=== PATIENT | female | born 1955 | race Two or more races ===

== ENCOUNTER 2016-08-19 11:59 | Emergency (ER) | payer OTHER ==
[~2016-08-19] VITALS: Ht 157.5 cm; Wt 63.5 kg
[2016-08-19 12:58] LABS: Basophils # (auto) 0 uL; Basophils % (auto) 0.3 % (0.0-2.0); Eosinophils # (auto) 0 uL; Eosinophils % (auto) 0.2 % (0.0-7.0); Hematocrit 38.8 % (36.0-46.0); Hemoglobin 12.8 g/dL (12.2-16.2); Lymphocytes # (auto) 0.9 uL; Lymphocytes % (auto) 9.5 % (10.0-50.0); Mean Corpuscular Hemoglobin 29.7 pg (28.0-32.0); Mean Corpuscular Volume 89.9 fL (80.0-100.0); Mean Platelet Volume 8.2 fL (7.4-10.4); Monocytes # (auto) 0.4 uL; Monocytes % (auto) 4.4 % (0.0-12.0); Neutrophils # (auto) 8.2 uL; Neutrophils % (auto) 85.6 % (37.0-80.0); Platelet Count (auto) 338 10^3/uL (140-450); Red Cell Distribution Width 12.4 % (11.6-16.0); White Blood Cell 9.6 10^3/uL (4.4-10.8)
[2016-08-19] MEDS ORDERED: SODIUM CHLORIDE 0.9% 500 ML IVB ONE (13:01)
[2016-08-19] MEDS ORDERED: MORPHINE SULFATE 4 MG/ML SYRG IV ONE (13:15)
[2016-08-19] MEDS ORDERED: PROCHLORPERAZINE EDISYLATE 5 MG/ML 2ML VIAL IV ONE (13:15)
[2016-08-19 13:39] LABS: Amylase 152 U/L (25-115)
[2016-08-19 13:41] LABS: Albumin 4.1 g/dL (3.4-5.0); BUN/Creatinine Ratio 17.6; Bilirubin, Total 0.4 mg/dL (0.2-1.0); Potassium 3.5 mmol/L (3.5-5.1); Total Protein 7.6 g/dL (6.4-8.2)
[2016-08-19] MEDS ORDERED: METOCLOPRAMIDE HCL 5MG/ml INJ 2ml VIAL IV ONE (15:15)
[2016-08-19] MEDS ORDERED: cloNIDine HCL 0.1 MG TAB PO ONE (15:15)
[2016-08-19 17:55] VITALS: BP 130/74
== END 2016-08-19 17:56 | disposition short-term general hospital (02) ==
LOC: ER 12:06
DX: R10.9 Unspecified abdominal pain (principal); G43.A1 Cyclical vomiting, in migraine, intractable; I10 Essential (primary) hypertension; Z88.6 Allergy status to analgesic agent; Z88.1 Allergy status to other antibiotic agents
CPT/HCPCS: 36415; 74176; 80053; 82150; 83690; 85025; 93005; 94761; 96361; 96374; 96375; 99285; J0780; J2270; J2765; J7040

== ENCOUNTER 2019-05-15 20:24 | Inpatient (IN) | payer OTHER ==
[~2019-05-15] VITALS: Ht 154.9 cm; Wt 58.9 kg
[2019-05-15] MEDS ORDERED: CLOPIDOGREL 300 MG TAB PO ONE (20:45)
[2019-05-15] MEDS ORDERED: HEPARIN SODIUM (PORCINE) 5000 UNITS/ML 1ML VIAL IV ONE (20:45)
[2019-05-15] MEDS ORDERED: ASPirin 81 mg TAB PO ONE (20:45)
[2019-05-15] MEDS: SODIUM CHLOR 0.9% PF (SALINE LOCK) 10ML VIAL/SYR IV SCH (20:48)
[2019-05-15] MEDS ORDERED: LIDOCAINE 2%HCL (LOCAL ANESTH.) INJ 20ML MDV ONE (20:54)
[2019-05-15] MEDS ORDERED: IOHEXOL 350 MG/ML 100ML IJ ONE (20:54)
[2019-05-15] MEDS ORDERED: ATROPINE SULF 1 MG/10ml SYR ONE (20:57)
[2019-05-15] MEDS ORDERED: fentaNYL CITRATE 100 MCG/2 ML VL ONE (20:57)
[2019-05-15] MEDS ORDERED: MIDAZOLAM HCL 1MG/1ML-2 ML VIAL ONE (20:57)
[2019-05-15] MEDS ORDERED: SODIUM CHL 0.9% 50 ML ONE (20:57)
[2019-05-15] MEDS ORDERED: ANGIOMAX 250 MG VIAL IV ONE (20:57)
[2019-05-15] MEDS ORDERED: EPINEPHrine HCL 1 MG/10 ML SYRG ONE (20:57)
[2019-05-15] MEDS ORDERED: PROMETHAZINE HCL 25 MG/ML 1ML ONE (20:59)
[2019-05-15] MEDS ORDERED: PROMETHAZINE HCL 25 MG/ML 1ML IV ONE (21:00)
[2019-05-15 21:02] LABS: Basophils # (auto) 0.1 uL; Basophils % (auto) 0.7 % (0.0-2.0); Eosinophils # (auto) 0.5 uL; Eosinophils % (auto) 3.5 % (0.0-7.0); Hematocrit 38.6 % (36.0-46.0); Hemoglobin 13.3 g/dL (12.2-16.2); Lymphocytes # (auto) 4.4 uL; Lymphocytes % (auto) 30.7 % (10.0-50.0); Mean Corpuscular Hgb Conc. 34.5 g/dL (32.0-36.0); Mean Corpuscular Volume 92.6 fL (80.0-100.0); Monocytes # (auto) 1.1 uL; Monocytes % (auto) 7.9 % (0.0-12.0); Neutrophils # (auto) 8.2 uL; Neutrophils % (auto) 57.2 % (37.0-80.0); Nucleated Red Blood Cells % 0.1 %; Platelet Count (auto) 323 10^3/uL (140-450); Red Blood Cells 4.17 10^6/uL (4.0-5.20); Red Cell Distribution Width 12.8 % (11.8-14.3); White Blood Cell 14.3 10^3/uL (4.4-10.8)
[2019-05-15 21:16] LABS: INR < 0.93 (0.9-1.15); Partial Thromboplastin Time 27.5 sec (23.64-32.05)
[2019-05-15 21:19] LABS: Albumin 3.5 g/dL (3.4-5.0); Calcium 8.2 mg/dL (8.5-10.1); Potassium 3.4 mmol/L (3.5-5.1)
[2019-05-15 21:21] LABS: BUN/Creatinine Ratio 13.5
[2019-05-15 21:25] LABS: Bilirubin, Total 0.2 mg/dL (0.2-1.0); Total Protein 7.1 g/dL (6.4-8.2)
[2019-05-15] MEDS ORDERED: ONDANSETRON HCL 4 MG/2 ML VIAL ONE (21:32)
[2019-05-15] MEDS ORDERED: EPTIFIBATIDE INJ (2MG/ML) 10ML VIAL IV ONE (21:33)
[2019-05-15] MEDS ORDERED: ATROPINE SULFATE 0.4 MG/1 ML VIAL ONE (21:45)
[2019-05-15] MEDS ORDERED: CLOPIDOGREL 300 MG TAB ONE (22:12)
[2019-05-15] MEDS ORDERED: MORPHINE SULF INJ 2 MG/ML SYRINGE 1ML IV PRN (22:45)
[2019-05-15] MEDS ORDERED: NITROGLYCERIN 0.4 MG SL TAB SL PRN (22:45)
--- NOTE | 2019-05-15 23:00 | NUR ---
RECEIVED REPORT FROM CARDIAC CATH POC REVIEWED
[2019-05-15 23:30] VITALS: BP 124/81
--- NOTE | 2019-05-15 23:30 | NUR ---
RECEIVED PT FROM CARDIAC CATH RIGHT GROIN DRESSING DRY AND INTACT , PULSES PALPABLE, PT FLAT DOWN TOWN TILL 1:00 AM, DENIES PAIN OR DISCOMFORT, RESP EVEN AND UNLABORED ON ROOM AIR, FAMILY AT BEDSIDE ALL QUESTIONS AND CONCERNS ADDRESSED, PT OFFERED FLUIDS AND BEDPAN, CALL LIGHT WITHIN REACH, WILL CONTINUE TO MONITOR
[2019-05-16] MEDS: SOD CHL 0.45% 1,000 ML IV SCH ×3 (01:02→21:14)
--- NOTE | 2019-05-16 01:20 | NUR ---
TWO HOUR PERIOD UP PT TURNED ON SIDE RIGHT GROIN DRESSING DRY AND INTACT NO S/S OF HEMATOMA OR PAIN
[2019-05-16 05:19] LABS: Basophils # (auto) 0 uL; Basophils % (auto) 0.3 % (0.0-2.0); Eosinophils # (auto) 0.1 uL; Eosinophils % (auto) 1.3 % (0.0-7.0); Hematocrit 36.7 % (36.0-46.0); Hemoglobin 12.7 g/dL (12.2-16.2); Lymphocytes # (auto) 2.5 uL; Lymphocytes % (auto) 24.9 % (10.0-50.0); Mean Corpuscular Hemoglobin 32.2 pg (28.0-32.0); Mean Corpuscular Hgb Conc. 34.7 g/dL (32.0-36.0); Mean Corpuscular Volume 92.7 fL (80.0-100.0); Monocytes # (auto) 0.7 uL; Monocytes % (auto) 7.5 % (0.0-12.0); Neutrophils # (auto) 6.5 uL; Platelet Count (auto) 295 10^3/uL (140-450); Red Blood Cells 3.96 10^6/uL (4.0-5.20); Red Cell Distribution Width 12.9 % (11.8-14.3); White Blood Cell 9.9 10^3/uL (4.4-10.8)
[2019-05-16 05:33] LABS: Calcium 8.7 mg/dL (8.5-10.1); Potassium 4.3 mmol/L (3.5-5.1)
[2019-05-16 05:39] LABS: BUN/Creatinine Ratio 13.1
[2019-05-16 05:48] VITALS: BP 143/80
[2019-05-16] MEDS: SODIUM CHLOR 0.9% PF (SALINE LOCK) 10ML VIAL/SYR IV SCH ×3 (06:00→21:15)
[2019-05-16] MEDS: ONDANSETRON HCL 4 MG/2 ML VIAL IV SCH ×2 (06:00)
[2019-05-16 08:44] VITALS: BP 118/66
[2019-05-16] MEDS: CLOPIDOGREL BISULFATE 75 MG TAB PO SCH (09:31)
[2019-05-16] MEDS: PANTOPRAZOLE 40 MG TAB PO SCH ×2 (09:31→21:15)
[2019-05-16] MEDS: ASPirin 81 mg TAB PO SCH (09:31)
[2019-05-16] MEDS: ATORVASTATIN 20 MG TAB PO SCH (09:32)
[2019-05-16] MEDS: METOPROLOL TARTRATE 25 MG TAB PO SCH ×2 (09:32→21:15)
--- NOTE | 2019-05-16 10:09 | NUR ---
1000 05/16/19 Contacted infrastructure analyst Kehinde Benavides at [facility] and requested authorization to be provided for patient's continued stay. Per Kehinde Benavides the assigned child welfare caseworker Perri has to review the clinical information (she did verify that they received clinical information I faxed today) before further authorization can be provided. I requested that she have child welfare caseworker Perri give me a call back.
--- NOTE | 2019-05-16 10:56 | NUR ---
1045 05/16/19 I spoke with [place] Assessor Perri, she stated that patient's stay should be covered due to needing another heart cath-when I asked her to fax over further authorization-she said that she still has to go over the information with her MD, and that they normally do their authorizations in the evening.
[2019-05-16] MEDS ORDERED: ONDANSETRON HCL 4 MG/2 ML VIAL IV PRN (11:00)
--- NOTE | 2019-05-16 11:03 | NUR ---
md Deepa Baker rounded on pt pt to be npo tonight at midnight and pt to have left heart cath anaya morning
--- NOTE | 2019-05-16 11:07 | NUR ---
Deepa Baker made aware of episode of v tach and bradycardia no new orders
[2019-05-16 13:00] VITALS: BP 129/71
--- NOTE | 2019-05-16 14:35 | NUR ---
1430 05/16/19 I called [place] Division Sales Manager Perri [phone] to let her know that I spoke with Dr. Deepa Baker and patient will be having the second heart cath tomorrow morning 05/17 at 0800. I requested authorization for patient's continued stay-she will speak with her MD and give me a call back. I asked her to provide me with a name and phone number for her MD so a peer to peer can be done if needed, she would not give me a doctor's name/number-I provided her with contact information for Dr. Deepa Baker-she said her doctor would call him if needed.
[2019-05-16] MEDS ORDERED: HYDROmorphone HCL 2 MG/ML VL IV PRN (16:00)
[2019-05-16] MEDS: HYDROcodone-ACET 5/325MG TAB PO PRN ×2 (16:09→22:42)
--- NOTE | 2019-05-16 16:25 | NUR ---
patient complain of moderate pain to right femoral site s/p heart cath, no bleeding noted dressing intact prn norco given as ordered for moderate pain
[2019-05-16 16:47] VITALS: BP 128/74
--- NOTE | 2019-05-16 19:30 | NUR ---
Opening Shift Note Assumed care of patient, awake and alert x4. Patient denies pain at this time. No signs/symptoms of distress or shortness of breath noted at this time. Instructed on plan of care and to call for assistance as needed, patient verbalized understanding. Bed is locked in lowest position, side rails x 2 are up, and call light is within reach.
[2019-05-16] MEDS ORDERED: TEMAZEPAM 15 MG CAP PO PRN (22:00)
[2019-05-16 23:09] VITALS: BP 122/72
--- NOTE | 2019-05-17 04:00 | NUR ---
CHG BATH COMPLETED CHG bath completed and full linen change done.
[2019-05-17 05:15] VITALS: BP 135/64
[2019-05-17 06:52] LABS: Basophils # (auto) 0 uL; Basophils % (auto) 0.4 % (0.0-2.0); Eosinophils # (auto) 0.3 uL; Eosinophils % (auto) 3.5 % (0.0-7.0); Hematocrit 37.8 % (36.0-46.0); Hemoglobin 13.1 g/dL (12.2-16.2); Lymphocytes # (auto) 2.2 uL; Mean Corpuscular Hemoglobin 32.1 pg (28.0-32.0); Mean Corpuscular Hgb Conc. 34.6 g/dL (32.0-36.0); Mean Corpuscular Volume 92.8 fL (80.0-100.0); Monocytes # (auto) 0.8 uL; Neutrophils # (auto) 6.4 uL; Neutrophils % (auto) 65.1 % (37.0-80.0); Platelet Count (auto) 275 10^3/uL (140-450); Red Blood Cells 4.08 10^6/uL (4.0-5.20); White Blood Cell 9.8 10^3/uL (4.4-10.8)
[2019-05-17] MEDS: SODIUM CHLOR 0.9% PF (SALINE LOCK) 10ML VIAL/SYR IV SCH ×3 (06:53→22:32)
[2019-05-17 07:03] LABS: Potassium 4.2 mmol/L (3.5-5.1)
--- NOTE | 2019-05-17 07:20 | NUR ---
PATIENT TRANSPORTED TO [facility] Patient transported to blood and plasma laboratory assistant via hospital bed with assistance of karley López. No signs/symptoms of distress noted upon departure. Patient denies pain at this time. Report given to blood and plasma laboratory assistant RN.
[2019-05-17] MEDS ORDERED: IOHEXOL 350 MG/ML 100ML IJ ONE ×2 (07:48→08:25)
[2019-05-17] MEDS ORDERED: LIDOCAINE 2%HCL (LOCAL ANESTH.) INJ 20ML MDV ONE (07:48)
[2019-05-17] MEDS ORDERED: fentaNYL CITRATE 100 MCG/2 ML VL ONE (07:52)
[2019-05-17] MEDS ORDERED: MIDAZOLAM HCL 1MG/1ML-2 ML VIAL ONE (07:52)
[2019-05-17] MEDS ORDERED: ANGIOMAX 250 MG VIAL IV ONE (07:52)
[2019-05-17] MEDS ORDERED: SODIUM CHL 0.9% 50 ML ONE (07:53)
[2019-05-17] MEDS ORDERED: ONDANSETRON HCL 4 MG/2 ML VIAL ONE (07:56)
--- NOTE | 2019-05-17 08:00 | NUR ---
RE: interventions Patient off unit. Addendum: 05/17/19 at 1149 by AUBREE GRIFFITHS RN RN Amended: Links added.
[2019-05-17] MEDS ORDERED: HYDROmorphone HCL 2 MG/ML VL ONE (08:51)
[2019-05-17] MEDS: METOPROLOL TARTRATE 25 MG TAB PO SCH ×2 (09:15→21:52)
[2019-05-17] MEDS: ASPirin 81 mg TAB PO SCH (09:15)
[2019-05-17] MEDS: CLOPIDOGREL BISULFATE 75 MG TAB PO SCH (09:16)
--- NOTE | 2019-05-17 09:55 | NUR ---
REPORT REPORT FROM LANA MENDEZ FROM [employer]AL[facility] CONTROL ASSISTANT RECEIVED. ALL QUESTIONS/CONCERNS ANSWERED
[2019-05-17] MEDS: PANTOPRAZOLE 40 MG TAB PO SCH ×2 (10:00→21:51)
[2019-05-17] MEDS: ATORVASTATIN 20 MG TAB PO SCH (10:00)
--- NOTE | 2019-05-17 10:10 | NUR ---
ON UNIT PATIENT ON UNIT FROM MOLDER SHOULDER PAD. NO S/S OF DISTRESS, PAIN, OR SOB. DRESSING TO LEFT GROIN C/D/I. PATIENT INSTRUCTED TO LAY FLAT UNTIL 1200 AND IS ABLE TO GET OUT OF BED AT 1500. PATIENT VERBALIZED UNDERSTANDING. WILL CONTINUE TO MONITOR
--- NOTE | 2019-05-17 10:20 | NUR ---
MD ROUNDS DR Deepa DE LEON AT BEDSIDE DISCUSSING POC FROM PROCEDURE WITH PATIENT AND FAMILY. ALL QUESTIONS/CONCERNS ANSWERED. NEW ORDERS RECEIVED/CARRIED OUT. WILL CONTINUE TO MONITOR
--- NOTE | 2019-05-17 10:30 | NUR ---
PATIENT RETURNED FROM [employer] SALES CLERK AT 1020. PHYSICAL ASSESSMENT DONE AT THIS TIME Addendum: 05/17/19 at 1230 by AUBREE GRIFFITHS RN RN Amended: Links added.
--- NOTE | 2019-05-17 12:05 | NUR ---
1200 05/17/19 Contacted [facility]-spoke with commodity industry analyst Dallas (working with binder caser Yahaira). I made Dallas aware that patient does have order to discharge home today, and needs a PCP appointment [facility]. Per Dallas, he will schedule an appointment for the patient to see their PCP within 1-2 days-he will call nurse's station with scheduled appointment as well as the patient.
--- NOTE | 2019-05-17 12:25 | NUR ---
PHONE CALL RECEIVED PHONE CALL FROM CORIE AT [facility] RE: PATIENT HAS APPOINTMENT MADE WITH PCP DR BROWNE Thursday05/19/19 AT 2:50 PM
[2019-05-17 13:00] VITALS: BP 167/82
[2019-05-17 17:00] VITALS: BP 136/70
[2019-05-17] MEDS: HYDROcodone-ACET 5/325MG TAB PO PRN ×2 (17:13→21:52)
--- NOTE | 2019-05-17 19:30 | NUR ---
Opening Shift Note Assumed care of patient, awake and alert x4. Patient denies pain at this time. No signs/symptoms of distress or shortness of breath noted at this time. Instructed on plan of care and to call for assistance as needed, patient verbalized understanding. Bed is locked in lowest position, side rails x 2 are up, and call light is within reach. Addendum: 05/17/19 at 2307 by IESHA ZIMMERMAN RN RN Per Pete Fernandes ordered for patient to be discharged home tomorrow on 05-18-19.
[2019-05-17 22:00] VITALS: BP 123/74
[2019-05-18 06:00] VITALS: BP 115/71
[2019-05-18] MEDS: SODIUM CHLOR 0.9% PF (SALINE LOCK) 10ML VIAL/SYR IV SCH (06:40)
--- NOTE | 2019-05-18 07:30 | NUR ---
Patient in bed, awake, oriented x4, no acute distress noted, ambulatory.
--- NOTE | 2019-05-18 08:05 | NUR ---
Received a call from Tile Roofer Gladis that patient got discharge orders yesterday but Filiberto called her why the patient is still here.
[2019-05-18 08:23] VITALS: BP 118/62
--- NOTE | 2019-05-18 11:00 | NUR ---
Patient stated she knew that she has discharge orders yesterday after the left heart cath but Dr. Baker told her that she will go home today, Thursday.
--- NOTE | 2019-05-18 11:00 | NUR ---
assessment No post discharge needs identified. Addendum: 05/18/19 at 1642 by Nyasia KENDRICK Amended: Links added.
[2019-05-18] MEDS: CLOPIDOGREL BISULFATE 75 MG TAB PO SCH (11:05)
[2019-05-18] MEDS: ATORVASTATIN 20 MG TAB PO SCH (11:06)
[2019-05-18] MEDS: PANTOPRAZOLE 40 MG TAB PO SCH (11:07)
[2019-05-18] MEDS: METOPROLOL TARTRATE 25 MG TAB PO SCH (11:07)
[2019-05-18] MEDS: ASPirin 81 mg TAB PO SCH (11:07)
[2019-05-18 11:44] VITALS: BP 118/62
--- NOTE | 2019-05-18 12:00 | NUR ---
Right and left groin no bleeding noted.
--- NOTE | 2019-05-18 12:25 | NUR ---
Discharge instructions given as ordered. Encourage to follow up with PMD as instructed. All questions and concerns addressed. Patient verbalized understanding. Medication reconciliation form completed and copy given to patient. IV removed with catheter intact, pressure dressing applied. Telemetry unit returned to ICU. Patient is ambulatory, patient refused to be taken to vehicle via wheelchair, patient with all personal belongings, accompanied by family member. No distress noted at time of departure.
== END 2019-05-18 12:25 | disposition home or self-care (01) | DRG 247 ==
LOC: EDBD 20:24 → ER 20:27 → CATH 1 22:56 → TELE-WESTW 22:57
PROVIDERS: ADMIT Specialist; ATTEND Specialist
PROC: 4A023N7 Measurement of Cardiac Sampling and Pressure, Left Heart, Percutaneous Approach (ICD-10-PCS; principal; 2019-05-15)
PROC: 027034Z Dilation of Coronary Artery, One Artery with Drug-eluting Intraluminal Device, Percutaneous Approach (ICD-10-PCS; 2019-05-15)
PROC: 02C03ZZ Extirpation of Matter from Coronary Artery, One Artery, Percutaneous Approach (ICD-10-PCS; 2019-05-15)
PROC: B211YZZ Fluoroscopy of Multiple Coronary Arteries using Other Contrast (ICD-10-PCS; 2019-05-15)
PROC: B215YZZ Fluoroscopy of Left Heart using Other Contrast (ICD-10-PCS; 2019-05-15)
PROC: B41C1ZZ Fluoroscopy of Pelvic Arteries using Low Osmolar Contrast (ICD-10-PCS; 2019-05-15)
PROC: B240ZZ3 Ultrasonography of Single Coronary Artery, Intravascular (ICD-10-PCS; 2019-05-15)
PROC: 3E073PZ Introduction of Platelet Inhibitor into Coronary Artery, Percutaneous Approach (ICD-10-PCS; 2019-05-15)
PROC: 027034Z Dilation of Coronary Artery, One Artery with Drug-eluting Intraluminal Device, Percutaneous Approach (ICD-10-PCS; 2019-05-17)
PROC: B41G1ZZ Fluoroscopy of Left Lower Extremity Arteries using Low Osmolar Contrast (ICD-10-PCS; 2019-05-17)
PROC: B241ZZ3 Ultrasonography of Multiple Coronary Arteries, Intravascular (ICD-10-PCS; 2019-05-17)
DX: I21.19 ST elevation (STEMI) myocardial infarction involving other coronary artery of inferior wall (principal); I25.110 Atherosclerotic heart disease of native coronary artery with unstable angina pectoris; I10 Essential (primary) hypertension; Z79.02 Long term (current) use of antithrombotics/antiplatelets; Z79.82 Long term (current) use of aspirin; Z79.899 Other long term (current) drug therapy; Z87.11 Personal history of peptic ulcer disease; Z88.2 Allergy status to sulfonamides; Z88.5 Allergy status to narcotic agent; Z90.710 Acquired absence of both cervix and uterus; I25.2 Old myocardial infarction
CPT/HCPCS: 36415; 71045; 75710; 80048; 80053; 83735; 83880; 84484; 85025; 85610; 85730; 86850; 86900; 86901; 92928; 92941; 92973; 92978; 93005; 93458; 94761; 96374; 99291; G0378; J0461; J2250; J2405

== ENCOUNTER 2019-09-06 18:25 | Emergency (ER) | payer OTHER ==
[~2019-09-06] VITALS: Ht 154.9 cm; Wt 63.5 kg
[2019-09-06 20:26] LABS: Basophils # (auto) 0 10 ^3/uL (0-0.2); Basophils % (auto) 0.2 % (0.0-2.0); Eosinophils # (auto) 0.3 10 ^3/uL (0-0.8); Eosinophils % (auto) 3.9 % (0.0-7.0); Hematocrit 42.4 % (36.0-46.0); Hemoglobin 14.5 g/dL (12.2-16.2); Lymphocytes # (auto) 1.9 10 ^3/uL (0.4-5.4); Mean Corpuscular Hemoglobin 31.4 pg (28.0-32.0); Mean Corpuscular Hgb Conc. 34.3 g/dL (32.0-36.0); Mean Corpuscular Volume 91.5 fL (80.0-100.0); Monocytes # (auto) 0.9 10 ^3/uL (0-1.3); Neutrophils # (auto) 5.2 10 ^3/uL (1.6-8.6); Neutrophils % (auto) 61.9 % (37.0-80.0); Nucleated Red Blood Cells % 0.1 %; Platelet Count (auto) 259 10^3/uL (140-450); Red Blood Cells 4.63 10^6/uL (4.0-5.20); Red Cell Distribution Width 13.2 % (11.8-14.3); White Blood Cell 8.4 10^3/uL (4.4-10.8)
[2019-09-06 20:46] LABS: Alanine Aminotransferase 36 U/L (13-56); Albumin 3.9 g/dL (3.4-5.0); Anion Gap 8 (5-15); Aspartate Aminotransferase 25 U/L (15-37); BUN/Creatinine Ratio 9.6; Blood Urea Nitrogen 7 mg/dL (7-18); Calcium 8.9 mg/dL (8.5-10.1); Carbon Dioxide 21 mmol/L (21-32); Chloride 104 mmol/L (98-107); GFR African American 104 mL/min; GFR Non-African American 86 mL/min; Glucose 110 mg/dL (74-106); Potassium 3.5 mmol/L (3.5-5.1); Sodium 133 mmol/L (136-145)
[2019-09-06 20:49] LABS: Alkaline Phosphatase 86 U/L (45-117); Bilirubin, Total 0.4 mg/dL (0.2-1.0); Total Protein 7.9 g/dL (6.4-8.2)
[2019-09-06] MEDS ORDERED: PROMETHAZINE HCL 25 MG/ML 1ML IV ONE (21:15)
[2019-09-06 23:09] LABS: INR 1.03 (0.9-1.15); Partial Thromboplastin Time 28.2 sec (23.64-32.05)
[2019-09-07 00:01] VITALS: BP 128/68
== END 2019-09-07 00:30 | disposition home or self-care (01) ==
LOC: ER 18:25 → EDBD 18:25 → ER 09-07 00:30
DX: R07.89 Other chest pain (principal); R11.0 Nausea; I10 Essential (primary) hypertension; I25.2 Old myocardial infarction; Z88.6 Allergy status to analgesic agent; Z88.2 Allergy status to sulfonamides; Z90.710 Acquired absence of both cervix and uterus; Z98.61 Coronary angioplasty status
CPT/HCPCS: 36415; 71045; 80053; 84484; 85025; 85610; 85730; 93005; 96374; 99285; J2550

== ENCOUNTER 2023-07-07 11:55 | Emergency (ER) | payer OTHER ==
[~2023-07-07] VITALS: Ht 154.9 cm; Wt 59.0 kg
[2023-07-07 11:59] VITALS: BP 144/80; RESP 18; O2SAT 98
[2023-07-07 12:35] LABS: Basophils # (auto) 0 10 ^3/uL (0-0.2); Basophils % (auto) 0.2 % (0.0-2.0); Eosinophils # (auto) 0.3 10 ^3/uL (0-0.8); Eosinophils % (auto) 1.1 % (0.0-7.0); Hematocrit 44.9 % (36.0-46.0); Hemoglobin 15.8 g/dL (12.2-16.2); Lymphocytes # (auto) 7.2 10 ^3/uL (0.4-5.4); Lymphocytes % (auto) 30.2 % (10.0-50.0); Mean Corpuscular Hemoglobin 30.9 pg (28.0-32.0); Mean Corpuscular Hgb Conc. 35.3 g/dL (32.0-36.0); Mean Corpuscular Volume 87.7 fL (80.0-100.0); Monocytes % (auto) 8.4 % (0.0-12.0); Neutrophils # (auto) 14.4 10 ^3/uL (1.6-8.6); Neutrophils % (auto) 60.1 % (37.0-80.0); Red Blood Cells 5.12 10^6/uL (4.0-5.20); Red Cell Distribution Width 13.2 % (11.8-14.3)
[2023-07-07 12:55] LABS: Alanine Aminotransferase 29 U/L (7-40); Albumin 4.7 g/dL (3.2-4.8); Alkaline Phosphatase 108 U/L (46-116); Anion Gap 13 (5-15); Aspartate Aminotransferase 15 U/L (13-40); BUN/Creatinine Ratio 16.3 (10.0-20.0); Bilirubin, Total 0.3 mg/dL (0.2-1.0); Blood Urea Nitrogen 17 mg/dL (9-23); Calcium 9.4 mg/dL (8.7-10.4); Carbon Dioxide 23 mmol/L (20-30); Chloride 99 mmol/L (98-107); Glucose 236 mg/dL (74-106); Sodium 135 mmol/L (136-145)
[2023-07-07 12:56] LABS: Total Protein 7.2 g/dL (5.7-8.2)
[2023-07-07 13:06] LABS: INR 0.97 (0.9-1.15); Partial Thromboplastin Time 23.9 SEC (24.5-34.5); Prothrombin Time 10.4 sec (9.3-11.8)
[2023-07-07 13:16] VITALS: PULSE 61
== END 2023-07-07 20:15 | disposition left against medical advice (07) ==
LOC: ER 11:55
DX: R07.89 Other chest pain (principal); R11.10 Vomiting, unspecified; Z53.21 Procedure and treatment not carried out due to patient leaving prior to being seen by health care provider; Z79.899 Other long term (current) drug therapy
CPT/HCPCS: 36415; 71045; 80053; 83735; 83880; 84484; 85025; 85610; 85730; 93005

== ENCOUNTER 2023-08-28 01:33 | Emergency (ER) | payer OTHER ==
[~2023-08-28] VITALS: Ht 154.9 cm; Wt 60.0 kg
[2023-08-28 02:10] VITALS: PULSE 62; RESP 13; O2SAT 100
[2023-08-28 02:22] LABS: Basophils # (auto) 0 10 ^3/uL (0-0.2); Basophils % (auto) 0.4 % (0.0-2.0); Eosinophils # (auto) 0.4 10 ^3/uL (0-0.8); Eosinophils % (auto) 3.8 % (0.0-7.0); Hemoglobin 14.7 g/dL (12.2-16.2); Lymphocytes # (auto) 4.2 10 ^3/uL (0.4-5.4); Lymphocytes % (auto) 38.4 % (10.0-50.0); Mean Corpuscular Hgb Conc. 34.2 g/dL (32.0-36.0); Mean Corpuscular Volume 90.6 fL (80.0-100.0); Monocytes # (auto) 0.8 10 ^3/uL (0-1.3); Monocytes % (auto) 7.7 % (0.0-12.0); Neutrophils # (auto) 5.4 10 ^3/uL (1.6-8.6); Neutrophils % (auto) 49.7 % (37.0-80.0); Nucleated Red Blood Cells % 0.1 %; Red Blood Cells 4.75 10^6/uL (4.0-5.20); Red Cell Distribution Width 12.9 % (11.8-14.3); White Blood Cell 10.9 10^3/uL (4.4-10.8)
[2023-08-28 02:26] LABS: Alanine Aminotransferase 22 U/L (7-40); Albumin 4.4 g/dL (3.2-4.8); Alkaline Phosphatase 87 U/L (46-116); Anion Gap 8 (5-15); Aspartate Aminotransferase 18 U/L (13-40); Bilirubin, Total 0.5 mg/dL (0.2-1.0); Blood Urea Nitrogen 10 mg/dL (9-23); Calcium 9.6 mg/dL (8.7-10.4); Carbon Dioxide 27 mmol/L (20-30); Chloride 104 mmol/L (98-107); Glucose 139 mg/dL (74-106); Magnesium 2.1 mg/dL (1.6-2.6); Potassium 3.7 mmol/L (3.5-5.1); Sodium 139 mmol/L (136-145)
[2023-08-28 02:41] LABS: INR 1.02 (0.9-1.15); Partial Thromboplastin Time 30.8 SEC (24.5-34.5); Prothrombin Time 10.7 sec (9.3-11.8)
[2023-08-28 02:42] LABS: BUN/Creatinine Ratio 12.5 (10.0-20.0)
[2023-08-28 03:45] VITALS: BP 158/56; PULSE 53; RESP 17; O2SAT 96
[2023-08-28 04:43] LABS: Urine Bacteria NONE SEEN /hpf (None Seen); Urine Blood Negative /uL (Negative); Urine Clarity Clear (Clear); Urine Color Colorless (Yellow); Urine Protein, UAD Negative (Negative); Urine Specific Gravity 1.006 (1.001-1.035); Urine Urobilinogen Normal (Negative); Urine WBC 4 /hpf (0 - 5); Urine pH 6.5 (5.0-8.0)
== END 2023-08-28 03:46 | disposition home or self-care (01) ==
LOC: ER 01:33 → EDBD 01:33 → ER 03:46
DX: I10 Essential (primary) hypertension (principal); R00.1 Bradycardia, unspecified; R07.89 Other chest pain; I25.10 Atherosclerotic heart disease of native coronary artery without angina pectoris; I25.2 Old myocardial infarction; Z98.890 Other specified postprocedural states; Z88.8 Allergy status to other drugs, medicaments and biological substances
CPT/HCPCS: 36415; 71045; 80053; 81001; 83735; 83880; 84484; 85025; 85610; 85730; 93005